=== PATIENT | male | born 1935 | race Caucasian/White ===

== ENCOUNTER → 2019-09-15 | Outpatient (CLI) | payer SELFPAY | PROVIDERS: Family Provider Family Medicine; PCP Family Medicine; Visit Provider Family Medicine | DX: I73.9 Peripheral vascular disease, unspecified (principal); I71.4 Abdominal aortic aneurysm, without rupture | CPT/HCPCS: 93922; 93978 ==

== ENCOUNTER 2020-09-17 20:00 | Inpatient (IN) | payer MEDICARE, OTHER, SELFPAY ==
[2020-09-17 20:02] VITALS: PULSE 91; RESP 18; TEMP 37.5; O2SAT 89; BMI 34.3
[2020-09-17 20:26] VITALS: O2SAT 91
[2020-09-17 20:46] VITALS: BP 132/65; PULSE 96; O2SAT 91
--- NOTE | 2020-09-17 20:47 | XRR_ITS ---
PROCEDURE INFORMATION: Exam: XR Chest, 1 View Exam date and time: 09/17/2020 9:14 PM Age: 85 years old Clinical indication: Dyspnea; Additional info: SOB TECHNIQUE: Imaging protocol: XR of the chest Views: 1 view. COMPARISON: [facility] Chest 2 views 01/09/2019 12:28 PM FINDINGS: Lungs: The lungs are clear bilaterally. Pulmonary vasculature within normal limits. Pleural space: No visible pneumothorax or pleural effusion. Heart/Mediastinum: Cardiomediastinal silhouette contour within normal limits. Bones/joints: No emergent findings identified. XR/XR chest 1V portable [id number] IMPRESSION: 1. No radiographic findings of acute cardiopulmonary disease.
--- NOTE | 2020-09-17 20:48 | ECG_ITS ---
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 Measurements Intervals [place] Rate: 78 P: 185 AL: 213 QRS: -41 QRSD: 145 T: 6 QT: 381 QTc: 436 Interpretive Statements SINUS RHYTHM WITH FIRST DEGREE AV BLOCK WITH FREQUENT SUPRAVENTRICULAR PREMATURE COMPLEXES LEFT AXIS DEVIATION [QRS AXIS < -30] RIGHT BUNDLE BRANCH BLOCK [120+ ms QRS DURATION, UPRIGHT V1, 40+ ms S IN I/aVL/V4/V5/V6 No previous ECG available for comparison Electronically Signed On 09-18-2020 17:52:38 PACKAGER HAND by Ru Valencia M.D. [email or web address]
[2020-09-17] MEDS: sodium chloride 0.9% 1,000 ML 999 ML IV (20:55)
[2020-09-17 21:12] LABS: Lactic Sepsis W/Reflex 1.8 mmol/L (0.5-2.2)
[2020-09-17 21:15] LABS: Troponin(5th) Baseline 38 ng/L (0-15)
[2020-09-17 21:17] LABS: Basophils % 0.1 %; Lymphocytes # 0.5 10^3/uL (0.8-4.8); Lymphocytes % 7.2 %; Mean Corpuscular HGB Conc 31.9 g/dL (30.0-36.0); Mean Platelet Volume 12.1 fL (7.4-10.4); Monocytes # 0.7 10^3/uL (0.2-0.9); Monocytes % 10.5 %; Neutrophils # 5.67 10^3/uL (1.8-7.7); Neutrophils % 81.9 %; Nucleated Red Blood Cells % 0 %; Platelet Count 140 10^3/cmm (130-400); Red Cell Distribution Width 14.5 % (12.1-15.1); White Blood Count 6.9 10^3/uL (4.0-10.0)
[2020-09-17 21:21] LABS: D Dimer 3.26 ug/mIFEU (0-0.59)
[2020-09-17 21:21] LABS: ABG PCO2 35.4 mmHg (35-45); ABG PH Result 7.42 (7.35-7.45); Arterial Blood Gas Hematocrit 43.7 % (42-52); Base Excess ABG -1.1 mmol/L (-2.0-2.0); Blood Gas Allen Test Pos; Blood Gas Sample Site Brachial, right; Blood Gas Sample Type Arterial; Carboxyhemoglobin 0.7 %THgb (0.4-20.1); HCO3 ABG 22.9 mmol/L (22-26); HGB O2 Sat 96.3 % (95-100); Methemoglobin 0.7 % (0.4-1.5); Oxygen Device NC; PO2 ABG 93.1 mmHg (80.0-100.0); Total Hemoglobin 14.3 g/dL (14-18)
[2020-09-17 21:24] LABS: Alanine Aminotransferase 34 U/L (0-41); Albumin Level 4.1 g/dL (3.5-5.2); Alkaline Phosphatase 110 IU/L (40-130); Anion Gap 16.2 (5-19); Aspartate Amino Transferase 39 U/L (0-40); Blood Urea Nitrogen 16 mg/dL (8-23); Calcium 9.3 mg/dL (8.5-10.5); Carbon Dioxide 24 mmol/L (22-29); Chloride 102 mmol/L (98-107); Globulin 2.9 g/dL (1.3-4.6); Glucose 161 mg/dL (65-115); NT Pro B Type Natriuretic Pept 320 pg/mL (0-450); Osmolality Calculated 291 mOsm/kg (285-295); Potassium 4.2 mmol/L (3.5-5.1); Sodium 138 mmol/L (136-145); Total Bilirubin 0.6 mg/dL (0.15-1.2)
[2020-09-17 21:29] LABS: Creatine Phosphokinase 688 U/L (39-308)
[2020-09-17 21:32] VITALS: BP 111/94; PULSE 86; RESP 25; O2SAT 92
[2020-09-17 21:40] LABS: Influenza A by IFA Negative (Negative); Influenza B by IFA Negative (Negative); SARS Covid-2 Antigen Positive (Negative)
[2020-09-17 21:52] VITALS: BP 129/67; PULSE 100; RESP 18; O2SAT 90
--- NOTE | 2020-09-17 22:41 | CTR_ITS ---
PROCEDURE INFORMATION: Exam: CT Angiography Chest With Contrast Exam date and time: 09/17/2020 10:46 PM Age: 85 years old Clinical indication: Shortness of breath; Patient HX: Covid+ SOB TECHNIQUE: Imaging protocol: Computed tomographic angiography of the chest with intravenous contrast. 3D rendering (Not supervised by radiologist): MIP and/or 3D reconstructed images were created by the technologist. Radiation optimization: All CT scans at this facility use at least one of these dose optimization techniques: automated exposure control; mA and/or kV adjustment per patient size (includes targeted exams where dose is matched to clinical indication); or iterative reconstruction. Contrast material: OMNI 350; Contrast volume: 88 ml; Contrast route: INTRAVENOUS (IV); COMPARISON: CR (CHEST, ) 09/17/2020 8:59 PM RADIATION DOSE METRICS: Total DLP (mGy-cm): 633.18 FINDINGS: Pulmonary arteries: No pulmonary emboli identified. Aorta: Moderate atherosclerotic calcification of the thoracic aorta. No thoracic aortic aneurysm identified. Lungs: Marked emphysematous changes of both lungs. There is a 0.7 cm nodule in the right upper lobe laterally on series 2, image 217. There is a 1 cm calcified granuloma in the right upper lobe posteromedially. Mild patchy airspace opacity in the right lower lobe, consistent with atelectasis and/or pneumonia. Mild patchy airspace opacity in left lower lobe, consistent with atelectasis and/or pneumonia. Pleural space: No pneumothorax or pleural effusion. Heart: Heart size within normal limits. Calcifications noted at the periphery of the mitral valve. Aortic valve calcifications noted. Lymph nodes: No enlarged or abnormal appearing mediastinal/hilar lymph nodes identified. Bones/joints: Unremarkable. No acute fracture. Soft tissues: Unremarkable. Other findings: Images of the upper abdomen were reviewed. A few gallstones are noted in the gallbladder. There is a 6.7 cm mass exophytic from the left kidney upper pole on series 2, image 549; visualized portion is consistent with a cyst. CT/CT angio chest PE protcl [id number] IMPRESSION: 1. No pulmonary emboli identified. 2. Marked emphysematous changes of both lungs. 3. Mild patchy airspace opacity in the right lower lobe, consistent with atelectasis and/or pneumonia. Mild patchy airspace opacity in left lower lobe, consistent with atelectasis and/or pneumonia. 4. There is a 0.7 cm nodule in the right upper lobe laterally. See comment. COMMENTS: Consistent with the [employer]'s Incidental Findings Committee white paper (J Am Bettina Radiol 2018): Any incidental renal lesion less than 1 cm or classified as too small to characterize, or any incidental cystic renal lesion characterized as simple-appearing, is likely benign. No follow-up imaging is recommended for these lesions per consensus recommendations based on imaging criteria. For patients at low risk (minimal or absent history of smoking and of other known risk factors), recommend CT Chest at 6-12 months, then consider CT Chest at 18-24 months. For patients at high risk (history of smoking or of other known risk factors), recommend CT Chest at 6-12 months, then [address] Chest at 18-24 months. (Reference: Ezekiel) References: Ezekiel Pineda et al. Guidelines for Management of Incidental Pulmonary Nodules Detected on CT Images: From the Fleischner Society 2017. Radiology. 2017;284(1):228-243. Radiation Dose CTDIVOL = (mGy): DLP = 633.18 (mGy-cm)
--- NOTE | 2020-09-17 22:44 | ED_ITS ---
HPI - Fall General: Chief Complaint: Fall Stated Complaint: fall Time Seen by Provider: 09/17/20 20:10 History of Present Illness: HPI Narrative: 85-year-old gentleman who lives at home alone. He says he normally gets around pretty well, and is not on oxygen. He presents after a fall at home. He is unsure how he fell or why. He says he was down for a bit, but not more than an hour or 2 at home. He pressed his medic alert bracelet as he could not get up under his own power. This is abnormal for him. He denies any fever. States that he has had a little bit of cough, but not any overt shortness of breath he was hypoxic on arrival. complaint: fall Onset (ago): hour(s) Fall from: standing Fall witnessed: no Place fall occurred: home Loss of consciousness: None Prolonged down time: yes and unclear Symptoms prior to fall: dizziness Context: other Location of injury: other (None) Associated symptoms-after fall: Reports short of breath; Denies abdominal pain, chest pain, headache(s), hematuria, neck pain or vertigo Review of Systems Const: Denies: fever(s) Eyes: Denies: change in vision ENMT: Denies: odynophagia, swelling of lips/tongue or sinus pain Card: Denies: chest pain, palpitations or irregular heart rhythm Resp: Reports: dyspnea and non-productive cough; Denies: productive cough or wheezing GI: Denies: abdominal pain, nausea or vomiting : Denies: difficulty urinating or hematuria Musc: Denies: neck pain or joint warmth Skin/Breast: Denies: rash or erythema Neuro: Denies: headache(s), dizziness or vertigo Psych: Denies: anxiety PFS ED PFSH: Medical History Abdominal aortic aneurysm (AAA) HTN (hypertension) Hyperlipidemia 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 Surgical History H/O aorto-femoral bypass S/P aneurysm repair S/P knee surgery Family History Other CAD (coronary artery disease) Social History Smoking and tobacco status: former smoker Alcohol intake: never Substance/Drug Use: never Lives independently: Yes Housing: House Physical Exam Const: GENERAL APPEARANCE: well developed ORIENTATION/CONSCIOUSNESS: Yes oriented to person, Yes oriented to place and Yes oriented to time HENMT: COMMON NORMALS: normocephalic, external ears normal and Normal external nose present HEAD & SCALP: normocephalic FACE & SINUS: normal facial exam NOSE: Normal external nose present and No nasal discharge present EXTERNAL EAR: Yes external ears normal Eye: COMMON NORMALS: Equal, round and reactive pupils present, EOMs intact bilaterally and conjunctivae normal EYELID: eyelids normal CONJUNCTIVA: Yes conjunctivae normal PUPIL: Yes Equal, round and reactive pupils present Neck/C-Spine: GENERAL: No tracheal deviation Chest: COMMONS NORMALS: normal inspection of the chest CHEST: No tenderness Resp: COMMON NORMALS: clear to auscultation bilaterally EFFORT & INSPECTION: Yes tachypneic, No respiratory distress, No retractions, No uses accessory muscles and No tracheal deviation AUSCULTATION: clear to auscultation bilaterally, no rhonchi, no wheezes and lung sounds not diminished Cardio: COMMON NORMALS: regular rate and regular rhythm RATE: regular rate and tachycardic RHYTHM: regular rhythm HEART SOUNDS: no murmurs PERIPHERAL PULSES: radial pulses present GI: INSPECTION: No abdominal distension AUSCULTATION: No Hyperactive bowel sounds present and No Hypoactive bowel sounds present PALPATION: No Guarding due to palpation present (GI) and No Rigid due to palpation PERCUSSION: no dullness to percussion and no tympanic to percussion Neuro: SENSORIUM/ORIENTATION: Yes oriented to person, Yes oriented to place and Yes oriented to time Psych: COMMON NORMALS: mental status grossly normal Skin: COMMON NORMALS: no rashes or lesions noted GENERAL SKIN EXAM: no rashes or lesions noted Course Consultations: Consultation #1: rashad Vital Signs: Vital signs: Vital Signs Temperature 99.5 F 09/17/20 20:02 Pulse Rate 73 09/18/20 01:41 Respiratory Rate 29 H 09/18/20 01:41 Blood Pressure 109/86 09/18/20 01:41 Pulse Oximetry 91 09/18/20 01:41 MDM - Fall MDM Narrative: Medical decision making narrative: 85-year-old gentleman with a fall and generalized weakness. He usually gets around without a walker, and does not require oxygen. He is requiring 5 to 6 L of oxygen, with saturations in the low 90s here just at rest. His chest x-ray was essentially negative, but CT reveals patchy infiltrates consistent with pneumonitis, no pulmonary embolus. His troponin was mildly elevated, but did not further elevated 2 hours. His EKG shows no acute ST changes. He is COVID-19 positive. He will go to the viral ICU for treatment of COVID-19 pneumonitis with hypoxic respiratory failure. Lab Data: Labs: Lab Results 09/17/20 09/17/20 09/17/20 Range/Units 20:20 20:20 20:20 WBC 6.9 (4.0-10.0) 10^3/ uL RBC 5.00 (4.1-5.3) 10^6/u L Hgb 15.0 (11.7-16.6) g/dL Hct 47.0 (42.0-52.0) % MCV 94.0 (80-94) fL MCH 30.0 (28.0-34.0) pg MCHC 31.9 (30.0-36.0) g/dL RDW 14.5 (12.1-15.1) % Plt Count 140 (130-400) 10^3/c mm MPV 12.1 H (7.4-10.4) fL Neut % (Auto) 81.9 % Lymph % (Auto) 7.2 % [place] % (Auto) 10.5 % Eos % (Auto) 0.0 % Baso % (Auto) 0.1 % Neut # (Auto) 5.67 (1.8-7.7) 10^3/u L Lymph # (Auto) 0.5 L (0.8-4.8) 10^3/u L [place] # (Auto) 0.7 (0.2-0.9) 10^3/u L Eos # (Auto) 0.0 (0.0-0.8) 10^3/u L Baso # (Auto) 0.0 (0.0-0.1) 10^3/u L Nucleated RBC % (a uto) 0 % Nucleated RBCs # 0.0 /100WBC D-Dimer 3.26 H (0-0.59) ug/mIFE U Specimen Type Sample Site ABG pH (7.35-7.45) ABG pCO2 (35-45) mmHg ABG pO2 (80.0-100.0) mmH g ABG HCO3 (22-26) mmol/L ABG Base Excess (-2.0-2.0) mmol/ L Guy Test Hematocrit (42-52) % Hgb O2 Saturation (95-100) % Carboxyhemoglobin (0.4-20.1) %THgb Methemoglobin (0.4-1.5) % Total Hemoglobin (14-18) g/dL O2 Delivery Device O2 Liters/Min % FiO2 % Etcher Photoengraving ID Sodium 138 (136-145) mmol/L Potassium 4.2 (3.5-5.1) mmol/L Chloride 102 (98-107) mmol/L Carbon Dioxide 24 (22-29) mmol/L Anion Gap 16.2 (5-19) BUN 16 (8-23) mg/dL Creatinine 0.9 (0.7-1.2) mg/dL GFR Calculation Not Reportable Glucose 161 H (65-115) mg/dL Calculated Osmolal ity 291 (285-295) mOsm/k g Lactic Acid (0.5-2.2) mmol/L Calcium 9.3 (8.5-10.5) mg/dL Total Bilirubin 0.6 (0.15-1.2) mg/dL AST 39 (0-40) U/L ALT 34 (0-41) U/L Alkaline Phosphata se 110 (40-130) IU/L Creatine Kinase 688 H* (39-308) U/L Troponin T Baselin e (0-15) ng/L Troponin T 120 Min [place] (0-15) ng/L Delta Troponin T (0-10) ABS# NT-Pro-B Natriuret Pep 320 (0-450) pg/mL Total Protein 7.0 (6.6-8.7) g/dL Albumin 4.1 (3.5-5.2) g/dL Globulin 2.9 (1.3-4.6) g/dL Influenza Type A A g (Negative) Influenza Type B A g (Negative) SARS-CoV-2 Ag (Rap id) (Negative) 01/11/0609/17/20 09/17/20 Range/Units 20:20 20:20 21:00 WBC (4.0-10.0) 10^3/ uL RBC (4.1-5.3) 10^6/u L Hgb (11.7-16.6) g/dL Hct (42.0-52.0) % MCV (80-94) fL MCH (28.0-34.0) pg MCHC (30.0-36.0) g/dL RDW (12.1-15.1) % Plt Count (130-400) 10^3/c mm MPV (7.4-10.4) fL Neut % (Auto) % Lymph % (Auto) % [place] % (Auto) % Eos % (Auto) % Baso % (Auto) % Neut # (Auto) (1.8-7.7) 10^3/u L Lymph # (Auto) (0.8-4.8) 10^3/u L [place] # (Auto) (0.2-0.9) 10^3/u L Eos # (Auto) (0.0-0.8) 10^3/u L Baso # (Auto) (0.0-0.1) 10^3/u L Nucleated RBC % (a uto) % Nucleated RBCs # /100WBC D-Dimer (0-0.59) ug/mIFE U Specimen Type Sample Site ABG pH (7.35-7.45) ABG pCO2 (35-45) mmHg ABG pO2 (80.0-100.0) mmH g ABG HCO3 (22-26) mmol/L ABG Base Excess (-2.0-2.0) mmol/ L Guy Test Hematocrit (42-52) % Hgb O2 Saturation (95-100) % Carboxyhemoglobin (0.4-20.1) %THgb Methemoglobin (0.4-1.5) % Total Hemoglobin (14-18) g/dL O2 Delivery Device O2 Liters/Min % FiO2 % Etcher Photoengraving ID Sodium (136-145) mmol/L Potassium (3.5-5.1) mmol/L Chloride (98-107) mmol/L Carbon Dioxide (22-29) mmol/L Anion Gap (5-19) BUN (8-23) mg/dL Creatinine (0.7-1.2) mg/dL GFR Calculation Glucose (65-115) mg/dL Calculated Osmolal ity (285-295) mOsm/k g Lactic Acid 1.8 (0.5-2.2) mmol/L Calcium (8.5-10.5) mg/dL Total Bilirubin (0.15-1.2) mg/dL AST (0-40) U/L ALT (0-41) U/L Alkaline Phosphata se (40-130) IU/L Creatine Kinase (39-308) U/L Troponin T Baselin e 38 H (0-15) ng/L Troponin T 120 Min [place] (0-15) ng/L Delta Troponin T (0-10) ABS# NT-Pro-B Natriuret Pep (0-450) pg/mL Total Protein (6.6-8.7) g/dL Albumin (3.5-5.2) g/dL Globulin (1.3-4.6) g/dL Influenza Type A A g Negative (Negative) Influenza Type B A g Negative (Negative) SARS-CoV-2 Ag (Rap id) (Negative) 09/17/20 09/17/20 09/17/20 Range/Units 21:00 21:10 22:28 WBC (4.0-10.0) 10^3/ uL RBC (4.1-5.3) 10^6/u L Hgb (11.7-16.6) g/dL Hct (42.0-52.0) % MCV (80-94) fL MCH (28.0-34.0) pg MCHC (30.0-36.0) g/dL RDW (12.1-15.1) % Plt Count (130-400) 10^3/c mm MPV (7.4-10.4) fL Neut % (Auto) % Lymph % (Auto) % [place] % (Auto) % Eos % (Auto) % Baso % (Auto) % Neut # (Auto) (1.8-7.7) 10^3/u L Lymph # (Auto) (0.8-4.8) 10^3/u L [place] # (Auto) (0.2-0.9) 10^3/u L Eos # (Auto) (0.0-0.8) 10^3/u L Baso # (Auto) (0.0-0.1) 10^3/u L Nucleated RBC % (a uto) % Nucleated RBCs # /100WBC D-Dimer (0-0.59) ug/mIFE U Specimen Type Arterial Sample Site Brachial, right ABG pH 7.42 (7.35-7.45) ABG pCO2 35.4 (35-45) mmHg ABG pO2 93.1 (80.0-100.0) mmH g ABG HCO3 22.9 (22-26) mmol/L ABG Base Excess -1.1 (-2.0-2.0) mmol/ L Guy Test Pos Hematocrit 43.7 (42-52) % Hgb O2 Saturation 96.3 (95-100) % Carboxyhemoglobin 0.7 (0.4-20.1) %THgb Methemoglobin 0.7 (0.4-1.5) % Total Hemoglobin 14.3 (14-18) g/dL O2 Delivery Device Nc O2 Liters/Min 6.0 % FiO2 44.0 % Etcher Photoengraving ID [id number] Sodium (136-145) mmol/L Potassium (3.5-5.1) mmol/L Chloride (98-107) mmol/L Carbon Dioxide (22-29) mmol/L Anion Gap (5-19) BUN (8-23) mg/dL Creatinine (0.7-1.2) mg/dL GFR Calculation Glucose (65-115) mg/dL Calculated Osmolal ity (285-295) mOsm/k g Lactic Acid (0.5-2.2) mmol/L Calcium (8.5-10.5) mg/dL Total Bilirubin (0.15-1.2) mg/dL AST (0-40) U/L ALT (0-41) U/L Alkaline Phosphata se (40-130) IU/L Creatine Kinase (39-308) U/L Troponin T Baselin e (0-15) ng/L Troponin T 120 Min [place] 37.26 H (0-15) ng/L Delta Troponin T -0.74 L (0-10) ABS# NT-Pro-B Natriuret Pep (0-450) pg/mL Total Protein (6.6-8.7) g/dL Albumin (3.5-5.2) g/dL Globulin (1.3-4.6) g/dL Influenza Type A A g (Negative) Influenza Type B A g (Negative) SARS-CoV-2 Ag (Rap id) Positive H (Negative) Discharge Plan Discharge Patient Disposition: Admitted As Inpatient Admit Provider: Bronwyn Gamez Clinical Impression: Acute respiratory failure with hypoxia, COVID-19 determined by clinical diagnostic criteria Condition: Stable Coding Level of Care Code ED Heat And Vent Aircraft Mechanic for Chg Fwd Exam Comprehensive
--- NOTE | 2020-09-17 22:48 | ECG_ITS ---
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 Measurements Intervals [place] Rate: 80 P: -85 NC: 233 QRS: -66 QRSD: 154 T: 9 QT: 387 QTc: 447 Interpretive Statements SINUS RHYTHM WITH MARKED SINUS ARRHYTHMIA WITH FIRST DEGREE AV BLOCK LEFT AXIS DEVIATION [QRS AXIS < -30] RIGHT BUNDLE BRANCH BLOCK [120+ ms QRS DURATION, UPRIGHT V1, 40+ ms S IN I/aVL/V4/V5/V6] PROBABLE SEPTAL MYOCARDIAL INFARCTION , OF INDETERMINATE AGE [35 ms Q WAVE IN V1/V2] Compared to ECG 09/17/2020 21:20:57 No significant changes Electronically Signed On 09-18-2020 18:00:25 GENERAL INSPECTOR by Ru Valencia M.D. [id number]
[2020-09-17 22:59] LABS: Troponin 5 2HR 37.26 ng/L (0-15)
[2020-09-17 23:02] LABS: Troponin 5 2HR Delta -0.74 ABS# (0-10)
[2020-09-17 23:24] VITALS: BP 98/76; PULSE 93; O2SAT 92
--- NOTE | 2020-09-17 23:27 | PM.HP ---
Providers/Chief Complaint Primary Care Provider: Keegan San MD Chief Complaint: fall History of Present Illness Keegan Ordonez is a 85 year old male with history of AAA, peripheral vascular disease presented today with chief complaint of weakness. Patient is stating that he lives alone and mostly able to carry out daily activities but today he was feeling very lethargic, he fell off from a chair, he just could not get up because of weakness, he stating that his chair flipped that because of fall but his energy was so low that he could not get himself up he stayed on the floor for about 2 hours before he pressed his medical bracelet. He never lost consciousness he is denying chest pain syncope fever nausea vomiting diarrhea dysuria. He mostly stays at home, he orders food online and gets delivered at home. He tries to limit his exposure to outside. Former smoker. Has not noticed fever at home. Diagnostics in the ER revealed acute hypoxic respiratory failure he was requiring 5 L nasal cannula to keep his saturation above 92%, he was diagnosed with COVID-19, CTA ruled out PE, he was given 1 L normal saline in the ER I have started him on Decadron, remdesivir, requested procalcitonin level. Review of Systems Const: Reports: chills, body aches, fatigue and malaise Eyes: Denies: change in vision ENMT: Denies: throat pain Card: Denies: chest pain Resp: Reports: dyspnea and non-productive cough GI: Denies: abdominal pain : Denies: flank pain or urinary frequency Musc: Denies: neck pain or extremity swelling Skin/Breast: Denies: rash Neuro: Denies: headache(s) Psych: Denies: anxiety Endo: Denies: polyuria Kurt/Lymph: Denies: easy bruising All/Imm: Denies: facial swelling Medications/Allergies Home Medications Medication Instructions Recorded Confirmed Last Taken Type metoprolol succinate 25 mg 25 mg PO DAILY 90 Days #90 tab 09/29/19 06/13/20 Unknown Rx tablet,extended release 24 hr atorvastatin 80 mg tablet 80 mg PO DAILY 06/13/20 06/13/20 Unknown History clonazepam 1 mg tablet 1 mg PO DAILY PRN 06/13/20 06/13/20 Unknown History gabapentin 300 mg capsule 300 mg PO DAILY 06/13/20 06/13/20 Unknown History tramadol 50 mg tablet 50 mg PO BID PRN 06/13/20 06/13/20 Unknown History lisinopril 2.5 mg tablet See Rx Instructions .ROUTE 08/15/20 Unknown Rx .COMPLEX #90 tablet Allergies Allergy/AdvReac Type Severity Reaction Status Date / Time Sulfa (Sulfonamide Allergy Unknown Unknown Verified 06/13/20 11:11 Antibiotics) PFSH Acute PFSH: Medical History Abdominal aortic aneurysm (AAA) HTN (hypertension) Hyperlipidemia 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 Surgical History H/O aorto-femoral bypass S/P aneurysm repair S/P knee surgery Family History Other CAD (coronary artery disease) Social History Smoking and tobacco status: former smoker Alcohol intake: never Substance/Drug Use: never Lives independently: Yes Housing: House Vitals/I&O/Wt Last Vital Signs Temp 99.5 F 09/17/20 20:02 Pulse 93 09/17/20 23:24 Resp 18 09/17/20 21:52 BP 98/76 09/17/20 23:24 Pulse Ox 92 09/17/20 23:24 Weight last 48 hrs Weight 124.738 kg Physical Exam Narrative: EXAM NARRATIVE: Elderly male, abdominal obese, currently saturating 93% on 5 L nasal cannula No active chest pain or shortness of breath Laying comfortable in his bed in supine position S1, S2 no signs of heart failure or tachyarrhythmia Bilateral breath sounds with expiratory wheezing and rhonchi without use of respiratory accessory muscles Abdomen central obesity, soft, nontender bowel sounds present no signs of peritonitis Normal mood and affect Neurologically nonfocal exam EOMI, PERRLA GCS 15 Skin without any sign ischemia gangrene ulcer Lower extremity trace edema Data : 09/17/20 20:20 09/17/20 20:20 A&P Assessment and plan (1) COVID-19 determined by clinical diagnostic criteria: Status: Acute (2) Acute respiratory failure with hypoxia: Status: Acute (3) Fall: Status: Acute Additional A&P Information Generalized weakness and acute hypoxic respiratory failure secondary to COVID-19 pneumonia Patient requiring 5 L nasal cannula High D-dimer noticed, CT rule out PE Requested procalcitonin level I will start him on Decadron and remdesivir Admit to viral ICU for severe Covid pneumonia Considering obesity and high inflammatory markers he is at risk of worsening Fall at home secondary to generalized weakness CPK not significantly high Received 1 L normal saline in the ER No abnormal kidney function I would not resume fluids at this point, trace edema noted of lower extremity Physical therapy before discharge No syncope, troponin with negative delta, EKG without ischemic or infarct changes, no tachycardia or bradycardy-arrhythmia Infrarenal AAA No hemodynamic compromise, Peripheral vascular disease: no signs of limb ischemia Full code Cardiac diet DVT prophylaxis: Lovenox, high BMI I would use 30 mg twice daily Attestations Medical Necessity Statement*: Anticipating stay in the hospital cross more than 2 midnights for severe Covid pneumonia requiring 5 nasal cannula oxygenation Time Spent in Patient Care: (>than 50% of time spent in counselling and/or direct pt care on unit). 50mins Coding Level of Care Code Acute Lithopress Operator for [facility] Fwd Diagnoses COVID-19 determined by clinical diagnostic criteria U07.1 Acute respiratory failure with hypoxia J96.01 Fall W19.XXXA
[2020-09-18] VITALS (272 sets, daily range): BP systolic 99–171; BP diastolic 44–116; PULSE 44–93; RESP 8–34; TEMP 36.5–37.8; O2SAT 69–98
[2020-09-18] MEDS: iohexol 350 mg/mL 100 mL Btl IV (00:34)
--- NOTE | 2020-09-18 02:48 | ECG_ITS ---
[facility] ED Test Date: 2020-09-18 Pat Name: Keegan Ordonez Department: Room: ICU19 Gender: Male Pediatric Radiologist: : 1935 Requested By: Adolfo Stone Order Number: [id number] Aden MD: Alis Browne M.D. Measurements Intervals [place] Rate: 65 P: AR: QRS: -69 QRSD: 156 T: -2 QT: 416 QTc: 433 Interpretive Statements ATRIAL FIBRILLATION MARKED LEFT AXIS DEVIATION [QRS AXIS < -30] RIGHT BUNDLE BRANCH BLOCK [120+ ms QRS DURATION, UPRIGHT V1, 40+ ms S IN I/aVL/V4/V5/V6] INTERPRETATION BASED ON A DEFAULT AGE OF 40 YEARS Compared to ECG 09/18/2020 00:02:04 Sinus rhythm no longer present Sinus arrhythmia no longer present First degree AV block no longer present Myocardial infarct finding no longer present Electronically Signed On 09-22-2020 21:37:47 SPRAYER AUTOMATIC SPRAY MACHINE by Alis Browne M.D. [id number]
[2020-09-18] MEDS: remdesivir 200 MG in sodium chloride 0.9% (100 ml) 100 ML 100 MG IV (03:17)
[2020-09-18] MEDS: enoxaparin 30 mg/0.3 mL Syringe SUBCUT ×2 (03:17→18:03)
[2020-09-18] MEDS: albuterol 8 gm MDI 2 PUFF INHALATION ×3 (04:15→23:19)
[2020-09-18 04:42] LABS: Basophils % 0.1 %; Hematocrit 42.5 % (42.0-52.0); Hemoglobin 13.9 g/dL (11.7-16.6); Lymphocytes % 13.9 %; Mean Corpuscular HGB Conc 32.7 g/dL (30.0-36.0); Mean Corpuscular Hemoglobin 30.4 pg (28.0-34.0); Mean Platelet Volume 11.3 fL (7.4-10.4); Monocytes # 0.8 10^3/uL (0.2-0.9); Monocytes % 11.1 %; Neutrophils # 5.19 10^3/uL (1.8-7.7); Neutrophils % 74.2 %; Nucleated Red Blood Cells % 0 %; Platelet Count 121 10^3/cmm (130-400); Red Blood Count 4.57 10^6/uL (4.1-5.3); Red Cell Distribution Width 14.6 % (12.1-15.1)
[2020-09-18 04:43] LABS: ABG PCO2 38.7 mmHg (35-45); ABG PH Result 7.38 (7.35-7.45); Base Excess ABG -2.2 mmol/L (-2.0-2.0); Blood Gas Sample Site Brachial, right; Blood Gas Sample Type Arterial; HCO3 ABG 22.7 mmol/L (22-26); Oxygen Device NC; PO2 ABG 73.9 mmHg (80.0-100.0)
[2020-09-18 05:36] LABS: Alanine Aminotransferase 33 U/L (0-41); Albumin Level 3.6 g/dL (3.5-5.2); Alkaline Phosphatase 92 IU/L (40-130); Aspartate Amino Transferase 59 U/L (0-40); Blood Urea Nitrogen 16 mg/dL (8-23); C Reactive Protein 66.6 mg/L (0.0-4.9); Calcium 8.5 mg/dL (8.5-10.5); Carbon Dioxide 19 mmol/L (22-29); Chloride 105 mmol/L (98-107); Globulin 3.2 g/dL (1.3-4.6); Glucose 126 mg/dL (65-115); Osmolality Calculated 285 mOsm/kg (285-295); Sodium 136 mmol/L (136-145); Total Bilirubin 0.5 mg/dL (0.15-1.2); Total Protein 6.8 g/dL (6.6-8.7)
[2020-09-18 06:10] LABS: Ferritin 1905 ng/mL (30-400)
[2020-09-18 08:23] LABS: Glucose Point of Care 121 mg/dL (70-110)
[2020-09-18] MEDS: gabapentin 300 mg Capsule PO (08:56)
[2020-09-18] MEDS: lisinopril 2.5 mg Tablet PO (08:56)
[2020-09-18] MEDS: dexamethasone 4 mg Tablet 6 MG PO (08:56)
[2020-09-18] MEDS: sennosides-docusate Tablet 1 TAB PO (08:56)
[2020-09-18] MEDS: atorvastatin 40 mg Tablet 80 MG PO (08:57)
[2020-09-18] MEDS: metoprolol succinate ER (24 HR) 25 mg Tablet PO (08:57)
[2020-09-18 12:20] LABS: Glucose Point of Care 113 mg/dL (70-110)
--- NOTE | 2020-09-18 14:24 | PM.PN ---
Subjective Subjective: Interval history: Patient was doing better. Stable on o2 via NC. No fever, chills, nausea or vomiting. Medications: Reviewed: Yes Vitals/I&O/Wt Last Vital Signs Temp 97.9 F 09/19/20 04:20 Pulse 73 09/19/20 09:12 Resp 20 H 09/19/20 09:12 BP 143/80 09/19/20 07:00 Pulse Ox 93 09/19/20 09:12 09/18/20 09/19/20 09/19/20 22:59 06:59 14:59 Intake Total 600 / 1200 100 / 100 Output Total 500 / 720 550 / 1270 Balance -500 / -120 50 / -70 100 / 100 Weight last 48 hrs Weight 124.738 kg Physical Exam Narrative: EXAM NARRATIVE: General : Awake, alert, no distress. on NC HEENT : Grossly unremarkable S1, S2 no signs of heart failure or tachyarrhythmia Chest : Non-labored respiratory Abdomen central obesity, soft, nontender bowel sounds present no signs of peritonitis Ext : Minimal bilateral LE edema Skin: without any sign ischemia gangrene ulcer Data : 09/19/20 07:15 09/19/20 07:15 A&P Assessment and plan (1) COVID-19 determined by clinical diagnostic criteria: Status: Acute (2) Acute respiratory failure with hypoxia: Status: Acute (3) Fall: Status: Acute Additional A&P Information Acute hypoxic respiratory failure secondary to COVID-19 pneumonia - Wean 02 as tolearted - Continue decadron - Remdesivir 5 days tx protocol - Stable Hypertension - Continue anti-hypertensive - Hold if worseing HR Infrarenal AAA - No hemodynamic compromise, Peripheral vascular disease:n - No signs of limb ischemia Full code Cardiac diet DVT prophylaxis: Lovenox, high BMI I would use 30 mg twice daily Attestations Medical Necessity Statement*: Will continue current hospitalization for management of covid -19 pneumonia on 5 day course of remdesivir Time Spent in Patient Care: Greater than 35 minutes (>than 50% of time spent in counselling and/or direct pt care on unit). Coding Level of Care Code Acute Escrow Closer for [facility] Fwd Diagnoses COVID-19 determined by clinical diagnostic criteria U07.1 Acute respiratory failure with hypoxia J96.01 Fall W19.XXXA
[2020-09-18 17:11] LABS: Glucose Point of Care 146 mg/dL (70-110)
--- NOTE | 2020-09-18 21:32 | PC.NURSE ---
Received report from off going nurse. Pt's plan of care reviewed. Pt resting in bed. Respirations are even and unlabored. No s/sx of distress noted. Pt is currently on bi-pap at 80% Fi02 and sating 92%. Pt is tolerating bi-pap well. Pt denies any pains or concerns at this time. Pt was asked if she wanted a bed bath tonight but pt refused. Bed in lowest and locked position, call light and water within reach, x's 2 rails up. Will continue to monitor pt.
[2020-09-19] VITALS (97 sets, daily range): BP systolic 98–159; BP diastolic 47–112; PULSE 36–75; RESP 10–30; TEMP 36.6–37.1; O2SAT 86–98
[2020-09-19 00:09] LABS: Glucose Point of Care 142 mg/dL (70-110)
[2020-09-19] MEDS: enoxaparin 30 mg/0.3 mL Syringe SUBCUT ×2 (03:13→17:11)
[2020-09-19] MEDS: remdesivir 100 MG in sodium chloride 0.9% (100 ml) 100 ML IV (06:47)
[2020-09-19] MEDS: TRAMadol 50 mg Tablet PO (07:00)
[2020-09-19 07:26] LABS: Basophils % 0.1 %; Hematocrit 45.7 % (42.0-52.0); Hemoglobin 14.5 g/dL (11.7-16.6); Lymphocytes % 14.5 %; Mean Corpuscular HGB Conc 31.7 g/dL (30.0-36.0); Mean Corpuscular Hemoglobin 30.2 pg (28.0-34.0); Mean Corpuscular Volume 95.2 fL (80-94); Mean Platelet Volume 11.7 fL (7.4-10.4); Monocytes # 0.8 10^3/uL (0.2-0.9); Monocytes % 11.1 %; Neutrophils # 5.12 10^3/uL (1.8-7.7); Neutrophils % 74.2 %; Nucleated Red Blood Cells % 0 %; Platelet Count 136 10^3/cmm (130-400); Red Cell Distribution Width 14.6 % (12.1-15.1); White Blood Count 6.9 10^3/uL (4.0-10.0)
[2020-09-19 07:51] LABS: Anion Gap 14.6 (5-19); Blood Urea Nitrogen 23 mg/dL (8-23); Calcium 9.2 mg/dL (8.5-10.5); Carbon Dioxide 26 mmol/L (22-29); Chloride 106 mmol/L (98-107); Glucose 112 mg/dL (65-115); Magnesium 2.1 mg/dL (1.7-2.3); Osmolality Calculated 298 mOsm/kg (285-295); Phosphorus 3.2 mg/dL (2.5-4.5); Potassium 4.6 mmol/L (3.5-5.1); Sodium 142 mmol/L (136-145)
[2020-09-19 08:20] LABS: D Dimer 2.22 ug/mIFEU (0-0.59)
[2020-09-19] MEDS: dexamethasone 4 mg Tablet 6 MG PO (11:21)
[2020-09-19] MEDS: atorvastatin 40 mg Tablet 80 MG PO (11:21)
[2020-09-19] MEDS: gabapentin 300 mg Capsule PO (11:22)
[2020-09-19] MEDS: sennosides-docusate Tablet 1 TAB PO (11:22)
[2020-09-19] MEDS: lisinopril 2.5 mg Tablet PO (11:22)
[2020-09-19] MEDS: metoprolol succinate ER (24 HR) 25 mg Tablet PO (11:23)
[2020-09-19 12:13] LABS: Glucose Point of Care 96 mg/dL (70-110)
--- NOTE | 2020-09-19 14:29 | PM.PN ---
Subjective Subjective: Interval history: Patient was doing better. Stable on o2 via NC. No fever, chills, nausea or vomiting. Medications: Reviewed: Yes Vitals/I&O/Wt Last Vital Signs Temp 97.9 F 09/19/20 04:20 Pulse 73 09/19/20 09:12 Resp 20 H 09/19/20 09:12 BP 143/80 09/19/20 07:00 Pulse Ox 93 09/19/20 09:12 09/18/20 09/19/20 09/19/20 22:59 06:59 14:59 Intake Total 600 / 1200 100 / 100 Output Total 500 / 720 550 / 1270 Balance -500 / -120 50 / -70 100 / 100 Weight last 48 hrs Weight 124.738 kg Physical Exam Narrative: EXAM NARRATIVE: General : Awake, alert, no distress. on NC HEENT : Grossly unremarkable S1, S2 no signs of heart failure or tachyarrhythmia Chest : Non-labored respiratory Abdomen central obesity, soft, nontender bowel sounds present no signs of peritonitis Ext : Minimal bilateral LE edema Skin: without any sign ischemia gangrene ulcer Data : 09/20/20 04:20 09/20/20 04:20 A&P Assessment and plan (1) COVID-19 determined by clinical diagnostic criteria: Status: Acute (2) Acute respiratory failure with hypoxia: Status: Acute (3) Fall: Status: Acute Additional A&P Information Acute hypoxic respiratory failure secondary to COVID-19 pneumonia - Wean 02 as tolearted - Continue decadron - Remdesivir 5 days tx protocol - To complete on 09/22 - Stable - Home o2 eval prior to discharge. 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 Coding Level of Care Code Acute Industrial Paramedic for [facility] Fwd Diagnoses COVID-19 determined by clinical diagnostic criteria U07.1 Acute respiratory failure with hypoxia J96.01 Fall W19.XXXA
[2020-09-19 18:03] LABS: Glucose Point of Care 181 mg/dL (70-110)
--- NOTE | 2020-09-19 18:45 | PC.NURSE ---
Received bedside report on patient from Gris CURTIS. Assumed care at this time. Patient sitting up on side of bed eating his supper and talking to his daughter on the phone. No complaints voiced at this time.
[2020-09-19 19:08] LABS: Quest SARS-CoV-2 RNA DETECTED (NOT DETECTED)
[2020-09-19 20:34] LABS: Glucose Point of Care 154 mg/dL (70-110)
--- NOTE | 2020-09-19 23:30 | PC.NURSE ---
Patient turned education program associate light to get up to BSC for bowel movement. Patient was incontinent of light brown liquid stool in bed. Assisted up to BSC and complete linen change done and bath given while up on BSC. Patient transferred easily with assist x 1.
--- NOTE | 2020-09-19 23:50 | PC.NURSE ---
Assisted back to bed. Fresh water and grape juice given to drink. Light out, bed low position, call light and belongings within reach.
[2020-09-20] VITALS (11 sets, daily range): BP systolic 112–149; BP diastolic 59–73; PULSE 41–68; RESP 17–21; TEMP 36.4–37; O2SAT 92–95
[2020-09-20] MEDS: enoxaparin 30 mg/0.3 mL Syringe SUBCUT ×2 (02:45→15:44)
--- NOTE | 2020-09-20 04:32 | PC.NURSE ---
Up to BSC with assistance x 1, slightly unsteady on his feet.
[2020-09-20 04:42] LABS: Basophils % 0.1 %; Hematocrit 46.4 % (42.0-52.0); Hemoglobin 14.4 g/dL (11.7-16.6); Lymphocytes # 0.8 10^3/uL (0.8-4.8); Lymphocytes % 11.5 %; Mean Corpuscular Hemoglobin 30.2 pg (28.0-34.0); Mean Corpuscular Volume 97.3 fL (80-94); Mean Platelet Volume 11.4 fL (7.4-10.4); Monocytes # 0.4 10^3/uL (0.2-0.9); Monocytes % 6.1 %; Neutrophils # 5.81 10^3/uL (1.8-7.7); Neutrophils % 81.9 %; Nucleated Red Blood Cells % 0 %; Platelet Count 155 10^3/cmm (130-400); Red Blood Count 4.77 10^6/uL (4.1-5.3); Red Cell Distribution Width 14.5 % (12.1-15.1); White Blood Count 7.1 10^3/uL (4.0-10.0)
[2020-09-20 05:23] LABS: D Dimer 1.53 ug/mIFEU (0-0.59); Lactate (Lactic Acid level) 2.1 mmol/L (0.5-2.2)
[2020-09-20 05:26] LABS: Alanine Aminotransferase 43 U/L (0-41); Albumin Level 3.7 g/dL (3.5-5.2); Alkaline Phosphatase 85 IU/L (40-130); Anion Gap 14.3 (5-19); Aspartate Amino Transferase 68 U/L (0-40); Blood Urea Nitrogen 27 mg/dL (8-23); Calcium 9.3 mg/dL (8.5-10.5); Carbon Dioxide 26 mmol/L (22-29); Chloride 103 mmol/L (98-107); Globulin 3.3 g/dL (1.3-4.6); Glucose 131 mg/dL (65-115); Osmolality Calculated 293 mOsm/kg (285-295); Potassium 5.3 mmol/L (3.5-5.1); Sodium 138 mmol/L (136-145); Total Bilirubin 0.4 mg/dL (0.15-1.2)
[2020-09-20 06:05] LABS: Ferritin 2002 ng/mL (30-400)
--- NOTE | 2020-09-20 06:22 | PC.NURSE ---
Phone report given to Rahel CURTIS. Patient ready to transfer to Med/Surg 260-1
[2020-09-20 09:25] LABS: Glucose Point of Care 135 mg/dL (70-110)
[2020-09-20] MEDS: dexamethasone 4 mg Tablet 6 MG PO (09:53)
[2020-09-20] MEDS: remdesivir 100 MG in sodium chloride 0.9% (100 ml) 100 ML IV (09:53)
[2020-09-20] MEDS: lisinopril 2.5 mg Tablet PO (09:53)
[2020-09-20] MEDS: gabapentin 300 mg Capsule PO (09:53)
[2020-09-20] MEDS: atorvastatin 40 mg Tablet 80 MG PO (09:53)
--- NOTE | 2020-09-20 10:00 | PC.NURSE ---
Remdesivir: Scheduled at 0600 not given then, noted at am med pass. As it was a daily med, administered at this time.
--- NOTE | 2020-09-20 11:15 | PC.NURSE ---
Pt transferred to [facility] via W/C and oxygen. All belongings with pt.
--- NOTE | 2020-09-20 11:25 | PC.NURSE ---
patient arrived on unit at 1120. patient stated I have been sitting in wheelchair since about 0645 this morning. They told me I was being moved to another room and then Jaxon my nurse said there is not a room for you at this time. I had to eat my breakfast in the wheelchair. Last night I had a bowel movement in my bed because no one would help me. data analyst report writer explained we will be taking care of him and if he needs anything let us know and i would let management know about his care.
[2020-09-20 11:48] LABS: Glucose Point of Care 111 mg/dL (70-110)
[2020-09-20 17:03] LABS: Glucose Point of Care 156 mg/dL (70-110)
[2020-09-20] MEDS: albuterol 8 gm MDI 2 PUFF INHALATION (20:05)
[2020-09-20 20:49] LABS: Glucose Point of Care 217 mg/dL (70-110)
--- NOTE | 2020-09-20 21:31 | P.PN_ITS ---
Subjective Subjective: Interval history: Patient was doing better. Stable on o2 via NC. No fever, chills, nausea or vomiting. Medications: Reviewed: Yes Vitals/I&O/Wt Last Vital Signs Temp 98.1 F 09/20/20 20:00 Pulse 59 L 09/20/20 20:06 Resp 18 09/20/20 20:06 BP 134/70 09/20/20 20:00 Pulse Ox 94 09/20/20 20:06 09/20/20 09/20/20 09/20/20 06:59 14:59 22:59 Intake Total 2019 740 / 740 240 / 980 Output Total 775 / 1490 Balance -415 / 530 739 / 739 240 / 979 Physical Exam Narrative: EXAM NARRATIVE: General : Awake, alert, no distress. on NC HEENT : Grossly unremarkable S1, S2 no signs of heart failure or tachyarrhythmia Chest : Non-labored respiratory Abdomen central obesity, soft, nontender bowel sounds present no signs of peritonitis Ext : Minimal bilateral LE edema Skin: without any sign ischemia gangrene ulcer Data : 09/20/20 04:20 09/20/20 04:20 A&P Assessment and plan (1) COVID-19 determined by clinical diagnostic criteria: Status: Acute (2) Acute respiratory failure with hypoxia: Status: Acute (3) Fall: Status: Acute Additional A&P Information Acute hypoxic respiratory failure secondary to COVID-19 pneumonia - Wean 02 as tolearted - Continue decadron - Remdesivir 5 days tx protocol - To complete on 09/22 - Stable - Home o2 eval prior to discharge. Hypertension - Continue anti-hypertensive - Hold if worseing HR Infrarenal AAA - No hemodynamic compromise, Peripheral vascular disease:n - No signs of limb ischemia Full code Cardiac diet DVT prophylaxis: Lovenox, high BMI I would use 30 mg twice daily Disposition: Ok to transfer to [facility] Attestations Medical Necessity Statement*: Continue hospitalization for tx of respiratory failure due to covid-19 Time Spent in Patient Care: Greater than 35 minutes (>than 50% of time spent in counselling and/or direct pt care on unit) . Coding Level of Care Code Acute Proposal Editor for [facility] Fwd Diagnoses COVID-19 determined by clinical diagnostic criteria U07.1 Acute respiratory failure with hypoxia J96.01 Fall W19.XXXA
[2020-09-20] MEDS: sodium polystyrene sulfonate 15 gm/60 mL Btl PO (22:40)
[2020-09-21] VITALS (12 sets, daily range): BP systolic 121–167; BP diastolic 62–83; PULSE 47–76; RESP 16–20; TEMP 36.4–37.1; O2SAT 92–95
[2020-09-21] MEDS: enoxaparin 30 mg/0.3 mL Syringe SUBCUT ×2 (02:34→15:35)
[2020-09-21] MEDS: remdesivir 100 MG in sodium chloride 0.9% (100 ml) 100 ML IV (05:29)
[2020-09-21 05:58] LABS: Basophils % 0.1 %; Hematocrit 43.5 % (42.0-52.0); Hemoglobin 13.8 g/dL (11.7-16.6); Lymphocytes # 0.8 10^3/uL (0.8-4.8); Lymphocytes % 10.2 %; Mean Corpuscular HGB Conc 31.7 g/dL (30.0-36.0); Mean Corpuscular Hemoglobin 30.4 pg (28.0-34.0); Mean Corpuscular Volume 95.8 fL (80-94); Mean Platelet Volume 11.1 fL (7.4-10.4); Monocytes # 0.8 10^3/uL (0.2-0.9); Monocytes % 11.5 %; Neutrophils % 77.8 %; Nucleated Red Blood Cells % 0 %; Platelet Count 174 10^3/cmm (130-400); Red Blood Count 4.54 10^6/uL (4.1-5.3); Red Cell Distribution Width 14.3 % (12.1-15.1); White Blood Count 7.3 10^3/uL (4.0-10.0)
[2020-09-21 06:40] LABS: Glucose Point of Care 147 mg/dL (70-110)
--- NOTE | 2020-09-21 07:45 | NUR.SHIFT ---
Patient mainly slept, and is eager to be DC'd, this nurse instructed him that this will most likely be tomorrow or after.
[2020-09-21] MEDS: lisinopril 2.5 mg Tablet PO (08:19)
[2020-09-21] MEDS: gabapentin 300 mg Capsule PO (08:19)
[2020-09-21] MEDS: dexamethasone 4 mg Tablet 6 MG PO (08:19)
[2020-09-21] MEDS: atorvastatin 40 mg Tablet 80 MG PO (08:19)
--- NOTE | 2020-09-21 09:25 | PC.NURSE ---
angie blood, sent to lab
--- NOTE | 2020-09-21 09:56 | PC.NURSE ---
notified Dr Mclean that patient's HR was in the 50s last night and early this am. per night nurse and senior mortgage underwriter's observation patient was asymptomatic
[2020-09-21] MEDS: albuterol 8 gm MDI 2 PUFF INHALATION ×2 (10:08→21:09)
--- NOTE | 2020-09-21 10:10 | PC.SOCIAL ---
Pg 2 IMM Explained to pt Pg 2 IMM. No questions voiced. Signed, dated, & timed a copy & placed in chart.
[2020-09-21 10:15] LABS: Alanine Aminotransferase 38 U/L (0-41); Albumin Level 3.5 g/dL (3.5-5.2); Alkaline Phosphatase 79 IU/L (40-130); Blood Urea Nitrogen 26 mg/dL (8-23); Calcium 8.8 mg/dL (8.5-10.5); Carbon Dioxide 29 mmol/L (22-29); Chloride 104 mmol/L (98-107); Globulin 2.7 g/dL (1.3-4.6); Glucose 132 mg/dL (65-115); Osmolality Calculated 303 mOsm/kg (285-295); Sodium 143 mmol/L (136-145); Total Bilirubin 0.4 mg/dL (0.15-1.2); Total Protein 6.2 g/dL (6.6-8.7)
[2020-09-21 10:23] LABS: Anion Gap 14.2 (5-19); Aspartate Amino Transferase 50 U/L (0-40); Potassium 4.2 mmol/L (3.5-5.1)
[2020-09-21 10:25] LABS: Procalcitonin 0.35 ng/mL (0-0.5)
--- NOTE | 2020-09-21 10:47 | PC.NURSE ---
Patient requesting his gout medication indomthacin. Dr Mclean notified
[2020-09-21 10:50] LABS: Ferritin 1491 ng/mL (30-400)
[2020-09-21 11:12] LABS: Glucose Point of Care 181 mg/dL (70-110)
--- NOTE | 2020-09-21 16:26 | PM.PN ---
Subjective Subjective: Interval history: Stable on o2 via NC. No fever, chills, nausea or vomiting. Medications: Reviewed: Yes Vitals/I&O/Wt Last Vital Signs Temp 98.4 F 09/22/20 00:00 Pulse 47 L 09/22/20 00:00 Resp 22 H 09/22/20 00:00 BP 151/66 09/22/20 00:00 Pulse Ox 92 09/22/20 00:00 09/21/20 09/21/20 09/22/20 14:59 22:59 06:59 Intake Total 480 / 480 240 / 720 Balance 480 / 480 240 / 720 Physical Exam Narrative: EXAM NARRATIVE: General : Awake, alert, no distress. on NC HEENT : Grossly unremarkable S1, S2 no signs of heart failure or tachyarrhythmia Chest : Non-labored respiratory Abdomen central obesity, soft, nontender bowel sounds present no signs of peritonitis Ext : Minimal bilateral LE edema Skin: without any sign ischemia gangrene ulcer Data : 09/21/20 05:35 09/21/20 09:24 A&P Assessment and plan (1) COVID-19 determined by clinical diagnostic criteria: Status: Acute (2) Acute respiratory failure with hypoxia: Status: Acute (3) Fall: Status: Acute Additional A&P Information Acute hypoxic respiratory failure secondary to COVID-19 pneumonia - Wean 02 as tolearted - Continue decadron - Remdesivir 5 days tx protocol - To complete on 09/22 - Stable - Home o2 eval prior to discharge. Hypertension - Continue anti-hypertensive - Hold if worseing HR Infrarenal AAA - No hemodynamic compromise, Peripheral vascular disease:n - No signs of limb ischemia Full code Cardiac diet DVT prophylaxis: Lovenox, high BMI I would use 30 mg twice daily Disposition: Plan to d/c in am Attestations Medical Necessity Statement*: continue hospital stay for iv remdesivir Time Spent in Patient Care: Greater than 35 minutes (>than 50% of time spent in counselling and/or direct pt care on unit). Coding Level of Care Code Acute Electric System Operator for [facility] Fwd Diagnoses COVID-19 determined by clinical diagnostic criteria U07.1 Acute respiratory failure with hypoxia J96.01 Fall W19.XXXA
[2020-09-21 16:49] LABS: Glucose Point of Care 154 mg/dL (70-110)
[2020-09-21 20:55] LABS: Glucose Point of Care 175 mg/dL (70-110)
[2020-09-22] VITALS (10 sets, daily range): BP systolic 118–151; BP diastolic 59–73; PULSE 47–70; RESP 16–22; TEMP 36.6–36.9; O2SAT 86–95
[2020-09-22] MEDS: enoxaparin 30 mg/0.3 mL Syringe SUBCUT (02:07)
--- NOTE | 2020-09-22 05:38 | NUR.SHIFT ---
Patient had an uneventful night, mainly slept.
[2020-09-22] MEDS: remdesivir 100 MG in sodium chloride 0.9% (100 ml) 100 ML IV (05:58)
[2020-09-22 06:29] LABS: Glucose Point of Care 106 mg/dL (70-110)
[2020-09-22] MEDS: dexamethasone 4 mg Tablet 6 MG PO (08:18)
[2020-09-22] MEDS: gabapentin 300 mg Capsule PO (08:18)
[2020-09-22] MEDS: lisinopril 2.5 mg Tablet PO (08:18)
[2020-09-22] MEDS: atorvastatin 40 mg Tablet 80 MG PO (08:18)
[2020-09-22 10:45] LABS: Glucose Point of Care 118 mg/dL (70-110)
--- NOTE | 2020-09-22 17:00 | PC.NURSE ---
Reviewed patient discharge with patient at this time. Patient verbalized understanding of discharge instructions including how to take his Eliquis. Patient is A&Ox3. Respirations even and non-labored on 2 liters nasal cannula with patient's own home oxygen tank. Patient wheel chaired to Uber ride at this time.
--- NOTE | 2020-09-22 17:05 | P.DS_ITS ---
Discharge Providers Date of Admission: 09/18/20 00:39 Date of Discharge: September 22, 2020 Attending Provider at Admission: Bronwyn Gamez MD Attending Provider at Discharge: Kianna Mclean Primary Care Provider: Keegan San MD Diagnoses at Discharge Discharge Diagnosis (1) COVID-19 determined by clinical diagnostic criteria: Status: Acute (2) Acute respiratory failure with hypoxia: Status: Acute (3) Fall: Status: Acute Reason for Visit Reason for Visit: fall Hospital Course Hospital Course 85 year old male with history of AAA, peripheral vascular disease presented toda y with chief complaint of weakness. Patient is stating that he lives alone and mostly able to carry out daily activities but today he was feeling very lethargic, he fell off from a chair, he just could not get up because of weakness, he stating that his chair flipped that because of fall but his energy was so low that he could not get himself up he stayed on the floor for about 2 hours before he pressed his medical bracelet. He never lost consciousness he is denying chest pain syncope fever nausea vomiting diarrhea dysuria. He mostly stays at home, he orders food online and gets delivered at home. He tries to limit his exposure to outside. Former smoker. Has not noticed fever at home. Diagnostics in the ER revealed acute hypoxic respiratory failure he was requiring 5 L nasal cannula to keep his saturation above 92%, he was diagnosed with COVID-19, CTA ruled out PE, he was given 1 L normal saline in the ER I have started him on Decadron, remdesivir . Upon admission to the hospital patient was doing well. He was weaned on his oxygen. Completed course of remdesivir. Home O2 eval was performed prior to discharge. Patient was advised to follow-up with primary care physician. Verbalized understanding to return to hospital if any worsening respiratory distress. Of note due to high risk of VT patient was discharged home on Eliquis for 15 days. Primary care physician follow-up to reassess need for continuation of anticoagulation. Risk versus benefit was discussed with patient after which he agreed to continue. Physical Exam Narrative: EXAM NARRATIVE: General : Awake, alert, no distress. on NC HEENT : Grossly unremarkable S1, S2 no signs of heart failure or tachyarrhythmia Chest : Non-labored respiratory Abdomen central obesity, soft, nontender bowel sounds present no signs of peritonitis Ext : Minimal bilateral LE edema Skin: without any sign ischemia gangrene ulcer Discharge Data Data Completed and Pending: Completed Studies During Hospitalization Category Date Time Status CT angio chest PE protcl [id number] Urge nt Cat Scan 09/17/20 22:41 Completed XR chest 1V misa ble [id number] Urgent Exams 09/17/20 20:47 Completed Pending at discharge Category Date Time Status Sputum Culture an d Gram Stain Stat Lab 09/17/20 20:48 Uncollected Labs from last 24 hours 09/22/20 09/22/20 09/21/20 10:37 06:22 20:26 POC Glucose 118 H 106 175 H Vitals: Last Vital Signs Temp 98.2 F 09/22/20 16:21 Pulse 64 09/22/20 16:21 Resp 16 09/22/20 16:21 BP 131/64 09/22/20 16:21 Pulse Ox 92 09/22/20 16:21 Discharge Plan Discharge Patient Disposition: Home Condition: Stable Prescriptions: New dexamethasone 4 mg Tablet 6 mg PO DAILY Qty: 5 RF: 0 Eliquis 2.5 mg tablet 2.5 mg PO BID Qty: 30 RF: 0 Continued atorvastatin [Lipitor] 80 mg tablet 80 mg PO DAILY@20 RF: 0 multivitamin Tablet 1 tab PO DAILY@20 RF: 0 aspirin 81 mg Tablet,Delayed Release (Dr/Ec) 81 mg PO DAILY@20 RF: 0 indomethacin 50 mg capsule 50 mg PO BID PRN (Reason: gout) RF: 0 metoprolol succinate 25 mg tablet extended release 24 hr 25 mg PO DAILY@20 RF: 0 lisinopril 2.5 mg tablet 2.5 mg PO DAILY@20 RF: 0 Discharge Orders: Discharge Order (Routine); Ordered 09/22/20 Ordered By: Kianna Mclean Other Ambulatory Orders: DME: Oxygen (Order) Location: None Selected Ordered By: Kianna Mclean [place] [facility] [facility] [place] [Outside] Discharge Diet: Advance as tolerated Discharge Activity: Resume usual activity Patient Instructions: Dexamethasone (By mouth), Apixaban (By mouth), Hypoxia (GEN), Fall Prevention (DC) Discharge Attestations Time Spent in Discharge Care*: greater than 30 min Specific Discharge Activities: educating patient, discussing with case resource manager/social workers/dc planners, documenting/other paperwork and evaluating patient/reviewing data Status at Discharge: Cognitive status at discharge: cognitively intact , Behavioral status at discharge: cooperative , Functional status at discharge: independent ambulation Overall status at discharge: patient is progressing back to baseline Quality Metrics Clinical Quality Measures During this hospital stay, did patient experience: None Coding Level of Care Code Acute Advertising Inserter for [facility] Fwd Diagnoses COVID-19 determined by clinical diagnostic criteria U07.1 Acute respiratory failure with hypoxia J96.01 Fall W19.XXXA
== END 2020-09-22 17:00 | disposition home or self-care (01) | DRG 177 ==
LOC: ER 20:58 → ICU 09-18 00:55 → MEDSURG 09-20 08:20
PROVIDERS: Admitting Provider Internal Medicine; Emergency Provider Emergency Medicine; PCP Family Medicine; Visit Provider Hospitalist
DX: U07.1 COVID-19 (principal); J12.82 Pneumonia due to coronavirus disease 2019; J96.01 Acute respiratory failure with hypoxia; I73.9 Peripheral vascular disease, unspecified; Z87.891 Personal history of nicotine dependence; I10 Essential (primary) hypertension; E78.5 Hyperlipidemia, unspecified; W19.XXXA Unspecified fall, initial encounter; Z79.82 Long term (current) use of aspirin
CPT/HCPCS: 12345; 36415; 36416; 36600; 71045; 71275; 80048; 80053; 82550; 82728; 82803; 82805; 82962; 83605; 83735; 83880; 84100; 84145; 84484; 85025; 85378; 86140; 87426; 87635; 87804; 93005; 94640; 96372; 99283; 99291; J1650; J1815; J3535; J7030; J8540; Q9967

== ENCOUNTER → 2021-05-31 15:07 | Outpatient (BNVA) | payer MEDICARE, OTHER, SELFPAY | PROVIDERS: PCP Family Medicine; Visit Provider Internal Medicine Cardiovascular Disease | DX: I48.91 Unspecified atrial fibrillation (principal); I10 Essential (primary) hypertension; I73.9 Peripheral vascular disease, unspecified | CPT/HCPCS: 80048 ==